=== PATIENT | female | born 1995 | race Caucasian/White ===

== ENCOUNTER → 2017-04-10 | Outpatient (CLI) | payer MEDICAID ==
[~2017-04-10] MED LIST: ACETAMINOPHEN-1 EAC1 PO; ALBUTEROL2.5 MG/31 INH; BACTRIM DS TAB1 EACH PO; BACTROBAN CREAM30 G1 TOP; CENTANY30 GM TOP; CIPRO500 MG PO; DIFLUCAN150 MG PO; DOXYCYCLINE 10100 M1 PO; EPTIFIBATIDE; ERYTHROMYCIN E3.5 G1 OPHTHALMIC; FLEXERIL PO; HYDROCODONE-AP1 EAC6 PO; IBUPROFEN 800800 M1 PO; KEFLEX500 M1 PO; KEFLEX500 MG PO; MACROBID 100 M100 M2 PO; MEDROLDOSEPACK PO; MUPIROCIN22 GM TOP; NAPHCON-A EYE D15 ML OPHTHALMIC; NYSTATIN15 GM TP; ONDANSETRON HCL4 M2 PO; PEPCID40 MG PO; PHENAZOPYRIDIN200 M2 PO; PHENERGAN 25 MG25 M1 PO; PREDNISONE 20 M20 M1 PO; PREDNISONE 20 M20 MG PO; PREDNISONE50 MG PO; PRILOSEC20 MG PO; PROAIR HFA8.5 GM INH; PROAIR RESPICL90 MCG IH; PROGRAF 1 MG1 MG; PYRIDIUM100 M1 PO; SULFADIAZINE500 MG PO; TACROLIMUS0.5 MG PO; TACROLIMUS1 MG PO; TRIAMCINOLONE A80 G2 TOP; ULTRAM 50MG TAB50 MG PO; URSODIOL300 MG PO; VENTOLIN HFA 1818 GM INH; ZOFRAN ODT4 MG PO; ZPAK PO; ZYRTEC 10 MG TA10 MG PO
== END ==
LOC: M.WC 02:28
DX: S31.102D Unspecified open wound of abdominal wall, epigastric region without penetration into peritoneal cavity, subsequent encounter (principal); J45.909 Unspecified asthma, uncomplicated; F32.9 Major depressive disorder, single episode, unspecified; F17.200 Nicotine dependence, unspecified, uncomplicated; W26.0XXD Contact with knife, subsequent encounter

== ENCOUNTER → 2017-05-08 | Outpatient (CLI) | payer MEDICAID | LOC: M.WC 08:00 | DX: S31.102D Unspecified open wound of abdominal wall, epigastric region without penetration into peritoneal cavity, subsequent encounter (principal); J45.909 Unspecified asthma, uncomplicated; F32.9 Major depressive disorder, single episode, unspecified; F17.200 Nicotine dependence, unspecified, uncomplicated; X58.XXXD Exposure to other specified factors, subsequent encounter ==

== ENCOUNTER 2017-06-27 22:01 | Emergency (ER) | payer MEDICAID ==
[~2017-06-27] VITALS: Ht 149.9 cm; Wt 52.2 kg
[~2017-06-27 22:01] MED LIST changes: -FLEXERIL PO; -MACROBID 100 M100 M2 PO; -ONDANSETRON HCL4 M2 PO; -PROGRAF 1 MG1 MG; -PYRIDIUM100 M1 PO; -ULTRAM 50MG TAB50 MG PO
[2017-06-27 22:18] VITALS: BP 112/82
[2017-06-27] MEDS ORDERED: KEFLEX500 M1 PO (22:56)
== END 2017-06-27 23:07 | disposition home or self-care (01) ==
LOC: M.ERS 22:01
DX: T21.12XA Burn of first degree of abdominal wall, initial encounter (principal); T31.0 Burns involving less than 10% of body surface; J45.909 Unspecified asthma, uncomplicated; N18.2 Chronic kidney disease, stage 2 (mild); F17.200 Nicotine dependence, unspecified, uncomplicated; Z88.8 Allergy status to other drugs, medicaments and biological substances; Z91.040 Latex allergy status; Z88.5 Allergy status to narcotic agent; W29.2XXA Contact with other powered household machinery, initial encounter; Y93.89 Activity, other specified; Y92.89 Other specified places as the place of occurrence of the external cause; Y99.0 Civilian activity done for income or pay

== ENCOUNTER → 2017-07-17 | Outpatient (CLI) | payer MEDICAID ==
[~2017-07-17] MED LIST changes: +FLEXERIL PO; +MACROBID 100 M100 M2 PO; +ONDANSETRON HCL4 M2 PO; +PROGRAF 1 MG1 MG; +PYRIDIUM100 M1 PO; +ULTRAM 50MG TAB50 MG PO
== END ==
LOC: M.WC 08:00
DX: T79.8XXD Other early complications of trauma, subsequent encounter (principal); S31.103D Unspecified open wound of abdominal wall, right lower quadrant without penetration into peritoneal cavity, subsequent encounter; N18.2 Chronic kidney disease, stage 2 (mild); J45.909 Unspecified asthma, uncomplicated; F32.9 Major depressive disorder, single episode, unspecified; F17.200 Nicotine dependence, unspecified, uncomplicated; X58.XXXD Exposure to other specified factors, subsequent encounter

== ENCOUNTER 2017-07-27 22:41 | Emergency (ER) | payer MEDICAID ==
[~2017-07-27] VITALS: Ht 149.9 cm; Wt 54.4 kg
[~2017-07-27 22:41] MED LIST changes: -FLEXERIL PO; -MACROBID 100 M100 M2 PO; -ONDANSETRON HCL4 M2 PO; -PROGRAF 1 MG1 MG; -PYRIDIUM100 M1 PO; -ULTRAM 50MG TAB50 MG PO
[2017-07-27 23:48] LABS: URINE BILIRUBIN NEGATIVE (Negative); URINE BLOOD NEGATIVE (Negative); URINE CLARITY CLEAR; URINE COLOR YELLOW; URINE GLUCOSE-RANDOM NEGATIVE (Negative); URINE KETONES NEGATIVE (Negative); URINE LEUKOCYTES-REFLEX NEGATIVE (Negative); URINE NITRITE-REFLEX NEGATIVE (Negative); URINE PROTEIN NEGATIVE (Negative); URINE SPECIFIC GRAVITY 1.025 (1.005-1.030); URINE UROBILINOGEN 0.2 E.U./dl (0.2-1.0)
[2017-07-27 23:50] LABS: ABSOLUTE EOSINOPHILS 0.2 thou/uL (0.0-0.7); ABSOLUTE MONOCYTES 0.6 thou/uL (0.0-1.2); ABSOLUTE NEUTROPHILS 5.2 thou/uL (1.6-8.1); BASOPHILS 0.5 %; EOSINOPHILS 2.1 %; HEMATOCRIT 44.9 % (37.0-47.0); HEMOGLOBIN 15.2 gm/dL (12.0-15.0); LYMPHOCYTES 25.1 %; MCH 31.7 pg (26.0-34.0); MCV 93.2 fL (80.0-100.0); MPV 9.8 fl. (7.2-11.1); NUCLEATED RBCS 0 /100WBC; PLATELET COUNT* 144 thou/uL (150-400); POLYS 64.3 %; RBC 4.82 mil/uL (4.20-5.00); RDW-CV 13.4 % (10.5-14.5); WBC 8.1 thou/uL (4.0-11.0)
[2017-07-27 23:57] LABS: AMP/METHAMP Negative (Negative); BARBITURATES Negative (Negative); BENZODIAZEPINES Negative (Negative); COCAINE Negative (Negative); METHADONE Negative (Negative); OPIATES Negative (Negative); PCP Negative (Negative); THC Negative (Negative)
[2017-07-28 00:19] LABS: CALCIUM 9.4 mg/dL (8.5-10.1); CREATININE 0.7 mg/dL (0.6-1.3); POTASSIUM 3.7 mmol/L (3.5-5.1)
[2017-07-28 02:44] VITALS: BP 124/79
== END 2017-07-28 02:44 | disposition home or self-care (01) ==
LOC: M.ERS 22:41
PROVIDERS: Emergency Medicine
DX: M54.5 Low back pain (principal); J45.909 Unspecified asthma, uncomplicated; N19 Unspecified kidney failure; Z88.6 Allergy status to analgesic agent; Z88.8 Allergy status to other drugs, medicaments and biological substances; Z91.040 Latex allergy status

== ENCOUNTER 2017-08-02 22:07 | Emergency (ER) | payer MEDICAID ==
[~2017-08-02] VITALS: Ht 149.9 cm; Wt 54.4 kg
[2017-08-03 00:32] VITALS: BP 127/86
== END 2017-08-03 00:34 | disposition home or self-care (01) ==
LOC: M.ERS 22:07
DX: R10.9 Unspecified abdominal pain (principal); J45.909 Unspecified asthma, uncomplicated; N18.2 Chronic kidney disease, stage 2 (mild); Z88.8 Allergy status to other drugs, medicaments and biological substances; Z88.5 Allergy status to narcotic agent; Z91.040 Latex allergy status

== ENCOUNTER 2017-08-19 06:47 | Emergency (ER) | payer MEDICAID ==
[~2017-08-19] VITALS: Ht 149.9 cm; Wt 54.4 kg
[2017-08-19 07:15] LABS: URINE BILIRUBIN NEGATIVE (Negative); URINE BLOOD NEGATIVE (Negative); URINE CLARITY CLEAR; URINE COLOR YELLOW; URINE GLUCOSE-RANDOM NEGATIVE (Negative); URINE KETONES NEGATIVE (Negative); URINE LEUKOCYTES-REFLEX NEGATIVE (Negative); URINE NITRITE-REFLEX NEGATIVE (Negative); URINE PROTEIN NEGATIVE (Negative); URINE SPECIFIC GRAVITY 1.025 (1.005-1.030); URINE UROBILINOGEN 0.2 E.U./dl (0.2-1.0)
[2017-08-19] MEDS ORDERED: ULTRAM 50MG TAB50 MG PO (08:03)
[2017-08-19] MEDS ORDERED: FLEXERIL PO (08:03)
[2017-08-19 08:07] VITALS: BP 109/66
== END 2017-08-19 08:07 | disposition home or self-care (01) ==
LOC: M.ERS 06:47
PROVIDERS: Family Medicine
DX: M54.5 Low back pain (principal); J44.9 Chronic obstructive pulmonary disease, unspecified; N19 Unspecified kidney failure; Z91.040 Latex allergy status; Z88.6 Allergy status to analgesic agent; Z88.8 Allergy status to other drugs, medicaments and biological substances; Z94.4 Liver transplant status

== ENCOUNTER 2017-09-04 22:58 | Emergency (ER) | payer MEDICAID ==
[~2017-09-04] VITALS: Ht 149.9 cm; Wt 54.4 kg
[~2017-09-04 22:58] MED LIST changes: +FLEXERIL PO; +ULTRAM 50MG TAB50 MG PO
[2017-09-05] VITALS: BP 110/68
== END 2017-09-05 00:02 | disposition home or self-care (01) ==
LOC: M.ERS 22:58
DX: J30.9 Allergic rhinitis, unspecified (principal); N18.2 Chronic kidney disease, stage 2 (mild); Z88.8 Allergy status to other drugs, medicaments and biological substances; Z88.5 Allergy status to narcotic agent; Z91.040 Latex allergy status

== ENCOUNTER 2017-09-30 21:41 | Emergency (ER) | payer MEDICAID ==
[~2017-09-30] VITALS: Ht 149.9 cm; Wt 53.1 kg
[2017-09-30] MEDS ORDERED: ZPAK PO (22:15)
[2017-09-30 22:34] VITALS: BP 114/78
== END 2017-09-30 22:35 | disposition home or self-care (01) ==
LOC: M.ERS 21:41
DX: J03.90 Acute tonsillitis, unspecified (principal); J45.909 Unspecified asthma, uncomplicated; Z91.040 Latex allergy status; Z88.6 Allergy status to analgesic agent; Z88.8 Allergy status to other drugs, medicaments and biological substances

== ENCOUNTER 2017-11-13 21:49 | Emergency (ER) | payer MEDICAID ==
[~2017-11-13] VITALS: Ht 149.9 cm; Wt 52.2 kg
[2017-11-13] MEDS ORDERED: PROGRAF 1 MG1 MG (22:06)
[2017-11-13 22:53] VITALS: BP 114/80
== END 2017-11-13 22:54 | disposition home or self-care (01) ==
LOC: M.ERS 21:49
DX: L76.21 Postprocedural hemorrhage of skin and subcutaneous tissue following a dermatologic procedure (principal); J45.909 Unspecified asthma, uncomplicated; N19 Unspecified kidney failure; Z88.5 Allergy status to narcotic agent; Z91.040 Latex allergy status; Z88.8 Allergy status to other drugs, medicaments and biological substances

== ENCOUNTER 2018-02-06 16:49 | Emergency (ER) | payer MEDICAID ==
[~2018-02-06] VITALS: Ht 149.9 cm; Wt 59.0 kg
[~2018-02-06 16:49] MED LIST changes: +PROGRAF 1 MG1 MG
[2018-02-06 17:01] LABS: URINE BILIRUBIN NEGATIVE (Negative); URINE BLOOD 3+ (Negative); URINE CLARITY CLEAR; URINE COLOR YELLOW; URINE GLUCOSE-RANDOM NEGATIVE (Negative); URINE KETONES NEGATIVE (Negative); URINE LEUKOCYTES-REFLEX 1+ (Negative); URINE NITRITE-REFLEX NEGATIVE (Negative); URINE PROTEIN 1+ (Negative); URINE SPECIFIC GRAVITY >= 1.030 (1.005-1.030); URINE UROBILINOGEN 0.2 E.U./dl (0.2-1.0)
[2018-02-06 17:08] LABS: SQUAMOUS >10 Many /LPF (0-3)
[2018-02-06 17:10] LABS: BACTERIA-REFLEX 1-9 Few /HPF (None Seen); URINE WBC-REFLEX >25 Many /HPF (0-5)
[2018-02-06 17:11] LABS: CRYSTALS None Seen /LPF (None Seen); URINE RBC 3-10 Few /HPF (0-2)
[2018-02-06 17:12] LABS: CASTS None Seen /LPF (None Seen); MUCUS None Seen strn/LPF (None Seen)
[2018-02-06] MEDS ORDERED: PYRIDIUM100 M1 PO (17:24)
[2018-02-06] MEDS ORDERED: MACROBID 100 M100 M2 PO (17:24)
[2018-02-06] MEDS ORDERED: ONDANSETRON HCL4 M2 PO (17:24)
[2018-02-06 17:30] VITALS: BP 119/79
== END 2018-02-06 17:31 | disposition home or self-care (01) ==
LOC: M.ERS 16:49
PROVIDERS: Physician Assistant
DX: N39.0 Urinary tract infection, site not specified (principal); J45.909 Unspecified asthma, uncomplicated; N19 Unspecified kidney failure; Z88.5 Allergy status to narcotic agent; Z91.040 Latex allergy status; Z88.8 Allergy status to other drugs, medicaments and biological substances

== ENCOUNTER 2018-04-02 13:34 | Emergency (ER) | payer MEDICAID ==
[~2018-04-02] VITALS: Ht 149.9 cm; Wt 54.4 kg
[~2018-04-02 13:34] MED LIST changes: +MACROBID 100 M100 M2 PO; +ONDANSETRON HCL4 M2 PO; +PYRIDIUM100 M1 PO
[2018-04-02] MEDS ORDERED: VENTOLIN HFA 1818 GM INH (13:44)
[2018-04-02 13:57] LABS: URINE BILIRUBIN NEGATIVE (Negative); URINE BLOOD NEGATIVE (Negative); URINE CLARITY CLEAR; URINE COLOR YELLOW; URINE GLUCOSE-RANDOM NEGATIVE (Negative); URINE KETONES NEGATIVE (Negative); URINE LEUKOCYTES-REFLEX 1+ (Negative); URINE NITRITE-REFLEX NEGATIVE (Negative); URINE PROTEIN NEGATIVE (Negative); URINE UROBILINOGEN 0.2 E.U./dl (0.2-1.0)
[2018-04-02 14:20] LABS: ABSOLUTE EOSINOPHILS 0.1 thou/uL (0.0-0.7); ABSOLUTE LYMPHOCYTES 1.7 thou/uL (0.8-5.3); ABSOLUTE MONOCYTES 0.7 thou/uL (0.0-1.2); ABSOLUTE NEUTROPHILS 4.3 thou/uL (1.6-8.1); BASOPHILS 0.4 %; EOSINOPHILS 1.9 %; HEMATOCRIT 44.2 % (37.0-47.0); HEMOGLOBIN 14.9 gm/dL (12.0-15.0); LYMPHOCYTES 24.6 %; MCH 30.9 pg (26.0-34.0); MCHC 33.7 g/dL (28.0-37.0); MCV 91.8 fL (80.0-100.0); MONOCYTES 10.4 %; MPV 9.3 fl. (7.2-11.1); NUCLEATED RBCS 0 /100WBC; PLATELET COUNT* 144 thou/uL (150-400); POLYS 62.7 %; RBC 4.81 mil/uL (4.20-5.00); WBC 6.9 thou/uL (4.0-11.0)
[2018-04-02 14:32] LABS: SQUAMOUS >10 Many /LPF (0-3); URINE RBC 0-2 Rare /HPF (0-2); URINE WBC-REFLEX 6-15 Few /HPF (0-5)
[2018-04-02 14:33] LABS: CASTS None Seen /LPF (None Seen); CRYSTALS None Seen /LPF (None Seen); MUCUS 0-3 Light strn/LPF (None Seen)
[2018-04-02 15:03] LABS: CALCIUM 8.9 mg/dL (8.5-10.1); CREATININE 0.8 mg/dL (0.6-1.3); POTASSIUM 3.9 mmol/L (3.5-5.1)
[2018-04-02 15:18] LABS: TOTAL BILIRUBIN 0.6 mg/dL (<0.1-1.0); TOTAL PROTEIN 8.4 g/dL (6.4-8.2)
[2018-04-02] MEDS ORDERED: MACROBID 100 M100 M1 PO (16:17)
[2018-04-02] MEDS ORDERED: PYRIDIUM200 MG PO (16:17)
[2018-04-02 16:31] VITALS: BP 109/75
== END 2018-04-02 16:32 | disposition home or self-care (01) ==
LOC: M.ERS 13:34
PROVIDERS: Nurse Practitioner Family
DX: N39.0 Urinary tract infection, site not specified (principal); J45.909 Unspecified asthma, uncomplicated; Z88.5 Allergy status to narcotic agent; Z91.040 Latex allergy status

== ENCOUNTER 2018-04-18 07:49 | Emergency (ER) | payer MEDICAID ==
[~2018-04-18] VITALS: Ht 149.9 cm; Wt 52.6 kg
[~2018-04-18 07:49] MED LIST changes: +MACROBID 100 M100 M1 PO; +PYRIDIUM200 MG PO
[2018-04-18] MEDS ORDERED: GENTAK5 ML INTRAOCULR (09:06)
[2018-04-18 09:20] VITALS: BP 118/85
--- NOTE | 2018-04-18 18:06 | EKG ---
[place] [address] ELECTROCARDIOGRAM REPORT Name: LANEY BLANCO Room: [facility]#: [id number] Admission: 04/18/18 Attend Phys: Discharge: 04/18/18 Date of : [birth year] Report #: [id number] THIS REPORT FOR: //name// [facility] ED Test Date: 2018-04-18 Test Time: 08:12:55 Pat Name: LANEY RUIZ Department: Room: Gender: F [employer]agger: [place] : 1995 Requested By: Donald Gan Order Number: [id number] MD: Jamal Ball Measurements Intervals [place] Rate: 89 P: 55 [place]: 146 QRS: 1 QRSD: 92 T: 10 QT: 342 QTc: 417 Interpretive Statements Sinus rhythm Probable left atrial enlargement RSR' in V1 or V2, right VCD or RVH Nonspecific T abnormalities, anterior leads Compared to ECG 11/18/2016 16:06:08 T-wave abnormality now present Electronically Signed On 04-18-2018 18:06:44 HE[employer] ASSISTANT by Jamal Ball [email or web address] <ELECTRONICALLY SIGNED> By: Jamal Ball MD, FACC 04/18/18 1806 1 1 Jamal Ball MD, FACC /EPI
== END 2018-04-18 09:21 | disposition home or self-care (01) ==
LOC: M.ERS 07:49
DX: H10.9 Unspecified conjunctivitis (principal); J45.909 Unspecified asthma, uncomplicated; F32.9 Major depressive disorder, single episode, unspecified; N19 Unspecified kidney failure; Z88.5 Allergy status to narcotic agent; Z91.040 Latex allergy status; Z88.8 Allergy status to other drugs, medicaments and biological substances

== ENCOUNTER 2018-06-04 07:17 | Emergency (ER) | payer MEDICAID ==
[~2018-06-04] VITALS: Ht 149.9 cm; Wt 53.1 kg
[~2018-06-04 07:17] MED LIST changes: +GENTAK5 ML INTRAOCULR
[2018-06-04] MEDS ORDERED: PREDNISONE 20 M20 M1 PO (08:18)
[2018-06-04 08:23] VITALS: BP 105/68
== END 2018-06-04 08:23 | disposition home or self-care (01) ==
LOC: M.ERS 07:17
DX: L50.9 Urticaria, unspecified (principal); F32.9 Major depressive disorder, single episode, unspecified; J45.909 Unspecified asthma, uncomplicated; N18.2 Chronic kidney disease, stage 2 (mild); Z91.040 Latex allergy status; Z88.6 Allergy status to analgesic agent; Z88.8 Allergy status to other drugs, medicaments and biological substances

== ENCOUNTER 2018-07-28 18:17 | Emergency (ER) | payer MEDICAID ==
[~2018-07-28] VITALS: Ht 149.9 cm; Wt 54.4 kg
[2018-07-28] MEDS ORDERED: VENTOLIN HFA 1818 GM INH (18:26)
[2018-07-28] MEDS ORDERED: DEPRESSION MED (18:27)
[2018-07-28 18:55] LABS: URINE BILIRUBIN NEGATIVE (Negative); URINE BLOOD TRACE (Negative); URINE CLARITY CLEAR; URINE COLOR YELLOW; URINE GLUCOSE-RANDOM NEGATIVE (Negative); URINE KETONES 1+ (Negative); URINE LEUKOCYTES-REFLEX NEGATIVE (Negative); URINE NITRITE-REFLEX NEGATIVE (Negative); URINE PROTEIN TRACE (Negative); URINE SPECIFIC GRAVITY >= 1.030 (1.005-1.030); URINE UROBILINOGEN 0.2 E.U./dl (0.2-1.0)
[2018-07-28 19:04] LABS: AMP/METHAMP Negative (Negative); BARBITURATES Negative (Negative); BENZODIAZEPINES Negative (Negative); COCAINE Negative (Negative); METHADONE Negative (Negative); OPIATES Negative (Negative); PCP Negative (Negative); THC Negative (Negative)
[2018-07-28 19:46] LABS: ABSOLUTE LYMPHOCYTES 1.4 thou/uL (0.8-5.3); ABSOLUTE MONOCYTES 0.5 thou/uL (0.0-1.2); ABSOLUTE NEUTROPHILS 2.3 thou/uL (1.6-8.1); BASOPHILS 0.6 %; EOSINOPHILS 0.9 %; HEMATOCRIT 37.2 % (37.0-47.0); HEMOGLOBIN 12.8 gm/dL (12.0-15.0); LYMPHOCYTES 33.1 %; MCH 30.9 pg (26.0-34.0); MCHC 34.4 g/dL (28.0-37.0); MCV 89.8 fL (80.0-100.0); MONOCYTES 11.1 %; MPV 8.8 fl. (7.2-11.1); NUCLEATED RBCS 0 /100WBC; PLATELET COUNT* 107 thou/uL (150-400); POLYS 54.3 %; RBC 4.14 mil/uL (4.20-5.00); RDW-CV 15.7 % (10.5-14.5); WBC 4.3 thou/uL (4.0-11.0)
[2018-07-28 20:07] LABS: ALBUMIN 3.4 g/dL (3.4-5.0); ALKALINE PHOSPHATASE 121 U/L (46-116); ANION GAP 8 mmol/L (7-16); BUN 15 mg/dL (7-18); CALCIUM 8.4 mg/dL (8.5-10.1); CHLORIDE 106 mmol/L (98-107); CO2 26 mmol/L (21-32); CREATININE 0.7 mg/dL (0.6-1.3); GLUCOSE 121 mg/dL (70-99); NT-PRO BRAIN NAT PEPTIDE 97 pg/mL (<300); POTASSIUM 3.3 mmol/L (3.5-5.1); SGOT 35 U/L (15-37); SGPT 37 U/L (30-65); SODIUM 140 mmol/L (136-145); TOTAL BILIRUBIN 1.1 mg/dL (<0.1-1.0); TOTAL PROTEIN 7.1 g/dL (6.4-8.2); TROPONIN-I LEVEL <0.06 ng/mL (<0.06)
[2018-07-28] MEDS ORDERED: K-DUR10 MEQ PO (20:31)
[2018-07-28 20:50] VITALS: BP 106/74
== END 2018-07-28 20:50 | disposition home or self-care (01) ==
LOC: M.ERS 18:17
PROVIDERS: Physician Assistant
DX: E86.0 Dehydration (principal); E87.6 Hypokalemia; R42 Dizziness and giddiness; R31.29 Other microscopic hematuria; F41.9 Anxiety disorder, unspecified; F32.9 Major depressive disorder, single episode, unspecified; J45.909 Unspecified asthma, uncomplicated; N18.2 Chronic kidney disease, stage 2 (mild); F17.210 Nicotine dependence, cigarettes, uncomplicated; Z88.6 Allergy status to analgesic agent; Z88.5 Allergy status to narcotic agent; Z91.040 Latex allergy status; Z88.8 Allergy status to other drugs, medicaments and biological substances; Z94.4 Liver transplant status; Z79.899 Other long term (current) drug therapy

== ENCOUNTER 2018-08-09 08:32 | Emergency (ER) | payer MEDICAID ==
[~2018-08-09] VITALS: Ht 149.9 cm; Wt 52.2 kg
[~2018-08-09 08:32] MED LIST changes: +DEPRESSION MED; +K-DUR10 MEQ PO
[2018-08-09] MEDS ORDERED: LEXAPRO 10 MG T10 M1 PO (08:43)
[2018-08-09 09:42] LABS: ABSOLUTE EOSINOPHILS 0.1 thou/uL (0.0-0.7); ABSOLUTE LYMPHOCYTES 1.1 thou/uL (0.8-5.3); ABSOLUTE MONOCYTES 0.4 thou/uL (0.0-1.2); ABSOLUTE NEUTROPHILS 2.1 thou/uL (1.6-8.1); BASOPHILS 0.3 %; EOSINOPHILS 3.9 %; HEMATOCRIT 38.3 % (37.0-47.0); HEMOGLOBIN 13.2 gm/dL (12.0-15.0); LYMPHOCYTES 29.9 %; MCH 31.4 pg (26.0-34.0); MCHC 34.6 g/dL (28.0-37.0); MCV 90.8 fL (80.0-100.0); MONOCYTES 11.5 %; MPV 8.8 fl. (7.2-11.1); NUCLEATED RBCS 0 /100WBC; PLATELET COUNT* 106 thou/uL (150-400); POLYS 54.4 %; RBC 4.22 mil/uL (4.20-5.00); RDW-CV 17.1 % (10.5-14.5); WBC 3.8 thou/uL (4.0-11.0)
[2018-08-09 09:50] LABS: ALBUMIN 3.4 g/dL (3.4-5.0); CALCIUM 8.8 mg/dL (8.5-10.1); CREATININE 0.6 mg/dL (0.6-1.3); POTASSIUM 3.4 mmol/L (3.5-5.1); TOTAL BILIRUBIN 1.2 mg/dL (<0.1-1.0); TOTAL PROTEIN 7.2 g/dL (6.4-8.2)
[2018-08-09 09:53] LABS: URINE BILIRUBIN NEGATIVE (Negative); URINE BLOOD NEGATIVE (Negative); URINE CLARITY CLEAR; URINE COLOR YELLOW; URINE GLUCOSE-RANDOM NEGATIVE (Negative); URINE KETONES NEGATIVE (Negative); URINE LEUKOCYTES-REFLEX NEGATIVE (Negative); URINE NITRITE-REFLEX NEGATIVE (Negative); URINE PROTEIN NEGATIVE (Negative)
[2018-08-09] MEDS ORDERED: CODEINE-GUAIFE120 ML PO (10:45)
[2018-08-09 11:01] VITALS: BP 107/69
== END 2018-08-09 11:01 | disposition home or self-care (01) ==
LOC: M.ERS 08:32
PROVIDERS: Personal Emergency Response Attendant
DX: B34.9 Viral infection, unspecified (principal); J45.909 Unspecified asthma, uncomplicated; F32.9 Major depressive disorder, single episode, unspecified; F41.9 Anxiety disorder, unspecified; N18.2 Chronic kidney disease, stage 2 (mild); Z88.4 Allergy status to anesthetic agent; Z88.5 Allergy status to narcotic agent; Z91.040 Latex allergy status

== ENCOUNTER 2018-08-16 21:09 | Emergency (ER) | payer MEDICAID ==
[~2018-08-16] VITALS: Ht 149.9 cm; Wt 52.2 kg
[~2018-08-16 21:09] MED LIST changes: +CODEINE-GUAIFE120 ML PO; +LEXAPRO 10 MG T10 M1 PO
[2018-08-16] MEDS ORDERED: ZPAK PO (21:59)
[2018-08-16] MEDS ORDERED: PREDNISONE 10 M10 M1 PO (21:59)
[2018-08-16] MEDS ORDERED: BENZONATATE200 MG PO (21:59)
[2018-08-16 22:29] VITALS: BP 117/72
== END 2018-08-16 22:32 | disposition home or self-care (01) ==
LOC: M.ERS 21:09
DX: J45.909 Unspecified asthma, uncomplicated (principal); F32.9 Major depressive disorder, single episode, unspecified; F41.9 Anxiety disorder, unspecified; N18.2 Chronic kidney disease, stage 2 (mild); Z88.4 Allergy status to anesthetic agent; Z88.8 Allergy status to other drugs, medicaments and biological substances; Z88.5 Allergy status to narcotic agent; Z91.040 Latex allergy status

== ENCOUNTER 2018-10-09 19:58 | Emergency (ER) | payer OTHER, MEDICAID ==
[~2018-10-09] VITALS: Ht 149.9 cm; Wt 53.1 kg
[~2018-10-09 19:58] MED LIST changes: +BENZONATATE200 MG PO; +PREDNISONE 10 M10 M1 PO
[2018-10-09 21:38] VITALS: BP 122/62
== END 2018-10-09 21:38 | disposition home or self-care (01) ==
LOC: M.ERS 19:58
DX: S16.1XXA Strain of muscle, fascia and tendon at neck level, initial encounter (principal); S09.8XXA Other specified injuries of head, initial encounter; F41.9 Anxiety disorder, unspecified; F32.9 Major depressive disorder, single episode, unspecified; J45.909 Unspecified asthma, uncomplicated; N18.2 Chronic kidney disease, stage 2 (mild); Z88.8 Allergy status to other drugs, medicaments and biological substances; Z94.4 Liver transplant status; Z88.6 Allergy status to analgesic agent; Z91.040 Latex allergy status; Z88.5 Allergy status to narcotic agent; V89.2XXA Person injured in unspecified motor-vehicle accident, traffic, initial encounter; Y93.89 Activity, other specified; Y92.89 Other specified places as the place of occurrence of the external cause; Y99.8 Other external cause status

== ENCOUNTER 2018-12-23 14:47 | Emergency (ER) | payer MEDICAID ==
[~2018-12-23] VITALS: Ht 149.9 cm; Wt 46.3 kg
[2018-12-23 15:16] LABS: URINE BLOOD NEGATIVE (Negative); URINE CLARITY CLEAR; URINE COLOR YELLOW; URINE GLUCOSE-RANDOM NEGATIVE (Negative); URINE KETONES NEGATIVE (Negative); URINE LEUKOCYTES-REFLEX NEGATIVE (Negative); URINE NITRITE-REFLEX NEGATIVE (Negative); URINE PROTEIN 1+ (Negative); URINE SPECIFIC GRAVITY >= 1.030 (1.005-1.030); URINE UROBILINOGEN 0.2 E.U./dl (0.2-1.0)
[2018-12-23 15:18] LABS: ICTOTEST (BILI CONFIRMATORY) Negative (Negative); URINE BILIRUBIN 2+ (Negative)
[2018-12-23 15:50] LABS: ABSOLUTE EOSINOPHILS 0.1 thou/uL (0.0-0.7); ABSOLUTE LYMPHOCYTES 0.4 thou/uL (0.8-5.3); ABSOLUTE MONOCYTES 0.5 thou/uL (0.0-1.2); ABSOLUTE NEUTROPHILS 3.5 thou/uL (1.6-8.1); BASOPHILS 0.3 %; EOSINOPHILS 2.3 %; HEMATOCRIT 43.6 % (37.0-47.0); HEMOGLOBIN 14.9 gm/dL (12.0-15.0); LYMPHOCYTES 9.2 %; MCH 31.8 pg (26.0-34.0); MCHC 34.2 g/dL (28.0-37.0); MCV 92.9 fL (80.0-100.0); MONOCYTES 11.7 %; MPV 8.9 fl. (7.2-11.1); NUCLEATED RBCS 0 /100WBC; PLATELET COUNT* 105 thou/uL (150-400); POLYS 76.5 %; RDW-CV 15.5 % (10.5-14.5); WBC 4.6 thou/uL (4.0-11.0)
[2018-12-23 15:51] LABS: AMP/METHAMP Negative (Negative); BARBITURATES Negative (Negative); BENZODIAZEPINES Negative (Negative); COCAINE Negative (Negative); METHADONE Negative (Negative); OPIATES Negative (Negative); PCP Negative (Negative); THC Negative (Negative)
[2018-12-23 15:56] LABS: CALCIUM 8.7 mg/dL (8.5-10.1); CREATININE 0.9 mg/dL (0.6-1.3); POTASSIUM 3.1 mmol/L (3.5-5.1)
[2018-12-23 16:01] LABS: TOTAL BILIRUBIN 1.3 mg/dL (<0.1-1.0); TOTAL PROTEIN 8.1 g/dL (6.4-8.2)
[2018-12-23] MEDS ORDERED: ONDANSETRON HCL4 M2 PO (17:34)
[2018-12-23 17:43] VITALS: BP 130/68
== END 2018-12-23 17:45 | disposition home or self-care (01) ==
LOC: M.ERS 14:47
PROVIDERS: Nurse Practitioner Family
DX: K52.9 Noninfective gastroenteritis and colitis, unspecified (principal); K56.7 Ileus, unspecified; J45.909 Unspecified asthma, uncomplicated; F32.9 Major depressive disorder, single episode, unspecified; F41.9 Anxiety disorder, unspecified; N18.2 Chronic kidney disease, stage 2 (mild); Z88.4 Allergy status to anesthetic agent; Z88.6 Allergy status to analgesic agent; Z91.040 Latex allergy status; Z88.5 Allergy status to narcotic agent

== ENCOUNTER → 2019-01-07 | Outpatient (CLI) | payer MEDICAID | LOC: M.WC 10:00 | DX: T79.8XXD Other early complications of trauma, subsequent encounter (principal); S31.109D Unspecified open wound of abdominal wall, unspecified quadrant without penetration into peritoneal cavity, subsequent encounter; J45.909 Unspecified asthma, uncomplicated; F17.200 Nicotine dependence, unspecified, uncomplicated; F32.9 Major depressive disorder, single episode, unspecified; F41.9 Anxiety disorder, unspecified; Z94.4 Liver transplant status; Z94.89 Other transplanted organ and tissue status; X58.XXXD Exposure to other specified factors, subsequent encounter; Y35 Legal intervention ==

== ENCOUNTER → 2019-01-14 | Outpatient (CLI) | payer MEDICAID | LOC: M.WC 02:00 | DX: S31.109D Unspecified open wound of abdominal wall, unspecified quadrant without penetration into peritoneal cavity, subsequent encounter (principal); J45.909 Unspecified asthma, uncomplicated; F17.200 Nicotine dependence, unspecified, uncomplicated; F32.9 Major depressive disorder, single episode, unspecified; Z94.4 Liver transplant status; Z98.49 Cataract extraction status, unspecified eye; X58.XXXD Exposure to other specified factors, subsequent encounter ==

== ENCOUNTER → 2019-01-17 | Outpatient (CLI) | payer MEDICAID | LOC: M.WC 14:06 | DX: S31.109D Unspecified open wound of abdominal wall, unspecified quadrant without penetration into peritoneal cavity, subsequent encounter (principal); J45.909 Unspecified asthma, uncomplicated; F32.9 Major depressive disorder, single episode, unspecified; F17.200 Nicotine dependence, unspecified, uncomplicated; X58.XXXD Exposure to other specified factors, subsequent encounter ==

== ENCOUNTER → 2019-01-31 | Outpatient (CLI) | payer MEDICAID ==
[~2019-01-31] MED LIST changes: +AUGMENTIN 875-1 EACH PO; +NORCO 5-325 TA1 EAC1 PO; +ZOFRAN ODT4 MG DISSOLVE
== END ==
LOC: M.WC 09:30
DX: T79.9XXD Unspecified early complication of trauma, subsequent encounter (principal); J45.909 Unspecified asthma, uncomplicated; F17.200 Nicotine dependence, unspecified, uncomplicated; F32.9 Major depressive disorder, single episode, unspecified; F41.9 Anxiety disorder, unspecified; Z94.4 Liver transplant status; Z94.89 Other transplanted organ and tissue status; X58.XXXD Exposure to other specified factors, subsequent encounter

== ENCOUNTER 2019-02-22 06:40 | Emergency (ER) | payer MEDICAID ==
[~2019-02-22] VITALS: Ht 149.9 cm; Wt 45.8 kg
[~2019-02-22 06:40] MED LIST changes: -AUGMENTIN 875-1 EACH PO; -NORCO 5-325 TA1 EAC1 PO; -ZOFRAN ODT4 MG DISSOLVE
[2019-02-22 07:10] LABS: ABSOLUTE EOSINOPHILS 0.1 thou/uL (0.0-0.7); ABSOLUTE LYMPHOCYTES 1.4 thou/uL (0.8-5.3); ABSOLUTE MONOCYTES 0.5 thou/uL (0.0-1.2); ABSOLUTE NEUTROPHILS 2.9 thou/uL (1.6-8.1); BASOPHILS 0.3 %; EOSINOPHILS 1.8 %; HEMATOCRIT 41.4 % (37.0-47.0); HEMOGLOBIN 14.3 gm/dL (12.0-15.0); LYMPHOCYTES 28.6 %; MCH 32.4 pg (26.0-34.0); MCHC 34.5 g/dL (28.0-37.0); MCV 93.7 fL (80.0-100.0); MONOCYTES 10.3 %; MPV 9.2 fl. (7.2-11.1); NUCLEATED RBCS 0 /100WBC; PLATELET COUNT* 103 thou/uL (150-400); RBC 4.41 mil/uL (4.20-5.00); RDW-CV 13.4 % (10.5-14.5)
[2019-02-22 07:13] LABS: URINE BILIRUBIN NEGATIVE (Negative); URINE BLOOD NEGATIVE (Negative); URINE CLARITY CLEAR; URINE COLOR YELLOW; URINE GLUCOSE-RANDOM NEGATIVE (Negative); URINE KETONES TRACE (Negative); URINE LEUKOCYTES-REFLEX NEGATIVE (Negative); URINE NITRITE-REFLEX NEGATIVE (Negative); URINE PROTEIN TRACE (Negative); URINE SPECIFIC GRAVITY 1.025 (1.005-1.030); URINE UROBILINOGEN 0.2 E.U./dl (0.2-1.0)
[2019-02-22 07:15] LABS: CALCIUM 8.9 mg/dL (8.5-10.1); CREATININE 0.8 mg/dL (0.6-1.3); POTASSIUM 3.1 mmol/L (3.5-5.1)
[2019-02-22 07:20] LABS: TOTAL BILIRUBIN 0.4 mg/dL (<0.1-1.0); TOTAL PROTEIN 7.9 g/dL (6.4-8.2)
[2019-02-22] MEDS ORDERED: NORCO 5-325 TA1 EAC1 PO (09:14)
[2019-02-22] MEDS ORDERED: ZOFRAN ODT4 MG DISSOLVE (09:14)
[2019-02-22] MEDS ORDERED: AUGMENTIN 875-1 EACH PO (09:14)
[2019-02-22 09:33] VITALS: BP 111/62
== END 2019-02-22 09:33 | disposition home or self-care (01) ==
LOC: M.ERS 06:40
PROVIDERS: Emergency Medicine Emergency Medical Services
DX: R19.7 Diarrhea, unspecified (principal); R10.32 Left lower quadrant pain; F32.9 Major depressive disorder, single episode, unspecified; F41.9 Anxiety disorder, unspecified; J45.909 Unspecified asthma, uncomplicated; Z88.6 Allergy status to analgesic agent; Z91.040 Latex allergy status; Z88.8 Allergy status to other drugs, medicaments and biological substances

== ENCOUNTER → 2019-03-19 | Outpatient (CLI) | payer MEDICAID ==
[~2019-03-19] MED LIST changes: +AUGMENTIN 875-1 EACH PO; +NORCO 5-325 TA1 EAC1 PO; +ZOFRAN ODT4 MG DISSOLVE
== END ==
LOC: M.WC 10:00
DX: T81.89XD Other complications of procedures, not elsewhere classified, subsequent encounter (principal); S31.109D Unspecified open wound of abdominal wall, unspecified quadrant without penetration into peritoneal cavity, subsequent encounter; J45.909 Unspecified asthma, uncomplicated; F17.200 Nicotine dependence, unspecified, uncomplicated; F32.9 Major depressive disorder, single episode, unspecified; F41.9 Anxiety disorder, unspecified; Z94.4 Liver transplant status; Z94.89 Other transplanted organ and tissue status; X78.1XXD Intentional self-harm by knife, subsequent encounter; Y83.8 Other surgical procedures as the cause of abnormal reaction of the patient, or of later complication, without mention of misadventure at the time of the procedure

== ENCOUNTER → 2019-04-02 | Outpatient (CLI) | payer MEDICAID | LOC: M.WC 04:44 | DX: T81.89XD Other complications of procedures, not elsewhere classified, subsequent encounter (principal); S31.109D Unspecified open wound of abdominal wall, unspecified quadrant without penetration into peritoneal cavity, subsequent encounter; J45.909 Unspecified asthma, uncomplicated; F41.9 Anxiety disorder, unspecified; F32.9 Major depressive disorder, single episode, unspecified; F17.200 Nicotine dependence, unspecified, uncomplicated; Z94.4 Liver transplant status; Z94.89 Other transplanted organ and tissue status; Y83.8 Other surgical procedures as the cause of abnormal reaction of the patient, or of later complication, without mention of misadventure at the time of the procedure; Y28 Contact with sharp object, undetermined intent ==

== ENCOUNTER → 2019-04-09 | Outpatient (CLI) | payer MEDICAID | LOC: M.WC 05:00 | DX: T81.89XD Other complications of procedures, not elsewhere classified, subsequent encounter (principal); S31.109D Unspecified open wound of abdominal wall, unspecified quadrant without penetration into peritoneal cavity, subsequent encounter; J45.909 Unspecified asthma, uncomplicated; F17.200 Nicotine dependence, unspecified, uncomplicated; F32.9 Major depressive disorder, single episode, unspecified; F41.9 Anxiety disorder, unspecified; Z94.4 Liver transplant status; Z94.89 Other transplanted organ and tissue status; X78.1XXD Intentional self-harm by knife, subsequent encounter; Y83.8 Other surgical procedures as the cause of abnormal reaction of the patient, or of later complication, without mention of misadventure at the time of the procedure ==

== ENCOUNTER 2019-04-30 18:09 | Emergency (ER) | payer OTHER ==
[~2019-04-30] VITALS: Ht 149.9 cm; Wt 45.8 kg
[2019-04-30 20:32] LABS: ABSOLUTE EOSINOPHILS 0.1 thou/uL (0.0-0.7); ABSOLUTE LYMPHOCYTES 1.7 thou/uL (0.8-5.3); ABSOLUTE MONOCYTES 0.5 thou/uL (0.0-1.2); ABSOLUTE NEUTROPHILS 3.6 thou/uL (1.6-8.1); BASOPHILS 0.3 %; EOSINOPHILS 2.2 %; HEMATOCRIT 39.6 % (37.0-47.0); HEMOGLOBIN 13.6 gm/dL (12.0-15.0); MCH 32.2 pg (26.0-34.0); MCHC 34.5 g/dL (28.0-37.0); MCV 93.4 fL (80.0-100.0); MONOCYTES 8.5 %; MPV 8.6 fl. (7.2-11.1); NUCLEATED RBCS 0 /100WBC; PLATELET COUNT* 116 thou/uL (150-400); RBC 4.24 mil/uL (4.20-5.00); RDW-CV 13.3 % (10.5-14.5); WBC 5.9 thou/uL (4.0-11.0)
[2019-04-30 20:38] LABS: CALCIUM 8.8 mg/dL (8.5-10.1); CREATININE 0.7 mg/dL (0.6-1.3); POTASSIUM 3.3 mmol/L (3.5-5.1)
[2019-04-30 20:39] LABS: INR 1.1; PROTIME 11.3 Seconds (9.20-11.50)
[2019-04-30 20:43] LABS: ALBUMIN 3.8 g/dL (3.4-5.0); TOTAL BILIRUBIN 0.4 mg/dL (<0.1-1.0); TOTAL PROTEIN 7.8 g/dL (6.4-8.2)
[2019-04-30 23:12] VITALS: BP 117/82
== END 2019-04-30 23:12 | disposition home or self-care (01) ==
LOC: M.ERS 18:09
PROVIDERS: Family Medicine
DX: K64.9 Unspecified hemorrhoids (principal); F41.9 Anxiety disorder, unspecified; F32.9 Major depressive disorder, single episode, unspecified; J45.909 Unspecified asthma, uncomplicated; N18.2 Chronic kidney disease, stage 2 (mild); Z94.4 Liver transplant status; Z88.6 Allergy status to analgesic agent; Z91.040 Latex allergy status

== ENCOUNTER 2019-05-23 19:44 | Emergency (ER) | payer OTHER ==
[~2019-05-23] VITALS: Ht 149.9 cm; Wt 46.7 kg
[2019-05-23 20:53] VITALS: BP 115/68
== END 2019-05-23 20:54 | disposition home or self-care (01) ==
LOC: M.ERS 19:44
DX: J02.9 Acute pharyngitis, unspecified (principal); S31.109D Unspecified open wound of abdominal wall, unspecified quadrant without penetration into peritoneal cavity, subsequent encounter; J45.909 Unspecified asthma, uncomplicated; F41.9 Anxiety disorder, unspecified; N18.2 Chronic kidney disease, stage 2 (mild); F32.9 Major depressive disorder, single episode, unspecified; Z88.6 Allergy status to analgesic agent; Z91.040 Latex allergy status; Z88.5 Allergy status to narcotic agent; X58.XXXD Exposure to other specified factors, subsequent encounter

== ENCOUNTER 2019-11-07 19:12 | Emergency (ER) | payer OTHER ==
[~2019-11-07] VITALS: Ht 149.9 cm; Wt 45.4 kg
[2019-11-07] MEDS ORDERED: ASTAGRAF XL0.5 MG (20:38)
[2019-11-07 20:50] LABS: URINE BILIRUBIN NEGATIVE (Negative); URINE BLOOD NEGATIVE (Negative); URINE CLARITY CLEAR; URINE COLOR YELLOW; URINE GLUCOSE-RANDOM NEGATIVE (Negative); URINE KETONES NEGATIVE (Negative); URINE LEUKOCYTES-REFLEX NEGATIVE (Negative); URINE PROTEIN NEGATIVE (Negative); URINE SPECIFIC GRAVITY >= 1.030 (1.005-1.030); URINE UROBILINOGEN 0.2 E.U./dl (0.2-1.0)
[2019-11-07 20:51] LABS: URINE NITRITE-REFLEX POSITIVE (Negative)
[2019-11-07 21:10] LABS: BACTERIA-REFLEX >30 Many /HPF (None Seen); CASTS None Seen /LPF (None Seen); CRYSTALS None Seen /LPF (None Seen); SQUAMOUS 0-3 Few /LPF (0-3); URINE RBC 0-2 Rare /HPF (0-2); URINE WBC-REFLEX 6-15 Few /HPF (0-5)
[2019-11-07] MEDS ORDERED: FLAGYL500 M1 PO (21:30)
[2019-11-07] MEDS ORDERED: BACTRIM DS TAB1 EAC1 PO (21:30)
[2019-11-07 21:51] VITALS: BP 119/75
== END 2019-11-07 21:52 | disposition home or self-care (01) ==
LOC: M.ERS 19:12
PROVIDERS: Emergency Medicine Emergency Medical Services
DX: N39.0 Urinary tract infection, site not specified (principal); N76.0 Acute vaginitis; J45.909 Unspecified asthma, uncomplicated; F32.9 Major depressive disorder, single episode, unspecified; F41.9 Anxiety disorder, unspecified; F17.210 Nicotine dependence, cigarettes, uncomplicated; Z91.040 Latex allergy status; Z88.6 Allergy status to analgesic agent; Z88.8 Allergy status to other drugs, medicaments and biological substances

== ENCOUNTER 2019-12-11 10:20 | Emergency (ER) | payer OTHER ==
[~2019-12-11] VITALS: Ht 149.9 cm; Wt 48.1 kg
[~2019-12-11 10:20] MED LIST changes: +ASTAGRAF XL0.5 MG; +BACTRIM DS TAB1 EAC1 PO; +FLAGYL500 M1 PO
[2019-12-11] MEDS ORDERED: AMOXICILLI400 MG/5 M PO (11:25)
[2019-12-11] MEDS ORDERED: Magic Mouthwash SWISH&SPIT (11:25)
[2019-12-11 11:34] VITALS: BP 123/70
== END 2019-12-11 11:34 | disposition home or self-care (01) ==
LOC: M.ERS 10:20
DX: S30.0XXA Contusion of lower back and pelvis, initial encounter (principal); J02.0 Streptococcal pharyngitis; J45.909 Unspecified asthma, uncomplicated; F17.210 Nicotine dependence, cigarettes, uncomplicated; Z88.6 Allergy status to analgesic agent; Z91.040 Latex allergy status; Z88.8 Allergy status to other drugs, medicaments and biological substances; W57.XXXA Bitten or stung by nonvenomous insect and other nonvenomous arthropods, initial encounter; Y93.89 Activity, other specified; Y92.89 Other specified places as the place of occurrence of the external cause; Y99.8 Other external cause status

== ENCOUNTER 2020-02-22 14:10 | Emergency (ER) | payer OTHER ==
[~2020-02-22] VITALS: Ht 149.9 cm; Wt 47.6 kg
[~2020-02-22 14:10] MED LIST changes: +AMOXICILLI400 MG/5 M PO; +Magic Mouthwash SWISH&SPIT
[2020-02-22] MEDS ORDERED: AMOXICILLIN 50500 MG PO (15:36)
[2020-02-22 15:37] LABS: INFLUENZA A ANTIGEN Negative (Negative); INFLUENZA B ANTIGEN Negative (Negative)
[2020-02-22 16:10] VITALS: BP 120/74
== END 2020-02-22 16:11 | disposition home or self-care (01) ==
LOC: M.ERS 14:10
PROVIDERS: Nurse Practitioner Family
DX: J02.0 Streptococcal pharyngitis (principal); Z20.828 Contact with and (suspected) exposure to other viral communicable diseases; J45.909 Unspecified asthma, uncomplicated; F32.9 Major depressive disorder, single episode, unspecified; N18.2 Chronic kidney disease, stage 2 (mild); F17.210 Nicotine dependence, cigarettes, uncomplicated; Z79.899 Other long term (current) drug therapy; Z88.8 Allergy status to other drugs, medicaments and biological substances; Z88.6 Allergy status to analgesic agent; Z91.040 Latex allergy status

== ENCOUNTER 2020-03-20 18:21 | Emergency (ER) | payer OTHER ==
[~2020-03-20] VITALS: Ht 149.9 cm; Wt 49.0 kg
[~2020-03-20 18:21] MED LIST changes: +AMOXICILLIN 50500 MG PO
[2020-03-20] MEDS ORDERED: PREDNISONE50 MG PO (19:36)
[2020-03-20 19:47] VITALS: BP 112/72
== END 2020-03-20 19:48 | disposition home or self-care (01) ==
LOC: M.ERS 18:21
DX: G56.02 Carpal tunnel syndrome, left upper limb (principal); J45.909 Unspecified asthma, uncomplicated; F17.210 Nicotine dependence, cigarettes, uncomplicated; Z79.899 Other long term (current) drug therapy; Z88.6 Allergy status to analgesic agent; Z91.040 Latex allergy status

== ENCOUNTER 2020-04-01 09:00 | Emergency (ER) | payer OTHER ==
[~2020-04-01] VITALS: Ht 180.3 cm; Wt 49.0 kg
[2020-04-01 09:52] LABS: URINE BILIRUBIN NEGATIVE (Negative); URINE BLOOD NEGATIVE (Negative); URINE CLARITY CLEAR; URINE COLOR YELLOW; URINE GLUCOSE-RANDOM NEGATIVE (Negative); URINE KETONES NEGATIVE (Negative); URINE LEUKOCYTES-REFLEX TRACE (Negative); URINE PROTEIN TRACE (Negative); URINE UROBILINOGEN 0.2 E.U./dl (0.2-1.0)
[2020-04-01 09:55] LABS: URINE NITRITE-REFLEX POSITIVE (Negative)
[2020-04-01 10:01] LABS: CASTS None Seen /LPF (None Seen); MUCUS None Seen strn/LPF (None Seen); SQUAMOUS 4-10 Moderate /LPF (0-3); URINE RBC 0-2 Rare /HPF (0-2); URINE WBC-REFLEX 0-5 Rare /HPF (0-5)
[2020-04-01 10:02] LABS: TRIPLE PHOSPHATE CRYSTALS >10 Many /LPF (None Seen)
[2020-04-01] MEDS ORDERED: KEFLEX500 M1 PO (11:09)
[2020-04-01] MEDS ORDERED: PREDNISONE50 MG PO (11:09)
[2020-04-01 11:17] VITALS: BP 109/63
== END 2020-04-01 11:18 | disposition home or self-care (01) ==
LOC: M.ERS 09:00
PROVIDERS: Emergency Medicine Emergency Medical Services
DX: N39.0 Urinary tract infection, site not specified (principal); Z20.828 Contact with and (suspected) exposure to other viral communicable diseases; R51.9 Headache, unspecified; J45.909 Unspecified asthma, uncomplicated; N18.2 Chronic kidney disease, stage 2 (mild); F17.210 Nicotine dependence, cigarettes, uncomplicated; Z79.899 Other long term (current) drug therapy; Z88.8 Allergy status to other drugs, medicaments and biological substances; Z88.6 Allergy status to analgesic agent

== ENCOUNTER 2020-08-18 18:04 | Emergency (ER) | payer OTHER ==
[~2020-08-18] VITALS: Ht 149.9 cm; Wt 50.8 kg
[2020-08-18] MEDS ORDERED: MEDROLDOSEPACK PO (19:13)
[2020-08-18] MEDS ORDERED: VENTOLIN HFA 1818 GM INH (19:13)
[2020-08-18] MEDS ORDERED: ZPAK PO (19:13)
[2020-08-18 19:29] VITALS: BP 132/65
== END 2020-08-18 19:30 | disposition home or self-care (01) ==
LOC: M.ERS 18:04
DX: J45.901 Unspecified asthma with (acute) exacerbation (principal); J06.9 Acute upper respiratory infection, unspecified; F17.210 Nicotine dependence, cigarettes, uncomplicated; Z91.040 Latex allergy status; Z88.5 Allergy status to narcotic agent; Z88.6 Allergy status to analgesic agent; Z88.8 Allergy status to other drugs, medicaments and biological substances

== ENCOUNTER 2020-09-08 12:16 | Emergency (ER) | payer OTHER, MEDICAID ==
[~2020-09-08] VITALS: Ht 149.9 cm; Wt 51.3 kg
[2020-09-08] MEDS ORDERED: PROGRAF 1 MG1 MG PO (12:48)
[2020-09-08 14:16] VITALS: BP 124/81
== END 2020-09-08 14:17 | disposition home or self-care (01) ==
LOC: M.ERS 12:16
DX: S63.501A Unspecified sprain of right wrist, initial encounter (principal); J45.909 Unspecified asthma, uncomplicated; Z88.8 Allergy status to other drugs, medicaments and biological substances; Z88.6 Allergy status to analgesic agent; Z91.040 Latex allergy status; Z79.899 Other long term (current) drug therapy; V49.59XA Passenger injured in collision with other motor vehicles in traffic accident, initial encounter; Y93.89 Activity, other specified; Y92.413 State road as the place of occurrence of the external cause; Y99.9 Unspecified external cause status

== ENCOUNTER 2021-04-20 14:12 | Emergency (ER) | payer OTHER, MEDICAID ==
[~2021-04-20] VITALS: Ht 149.9 cm; Wt 49.4 kg
[~2021-04-20 14:12] MED LIST changes: +PROGRAF 1 MG1 MG PO
[2021-04-20 15:08] VITALS: BP 130/54
== END 2021-04-20 15:09 | disposition home or self-care (01) ==
LOC: M.ERS 14:12
DX: R05.9 Cough, unspecified (principal); Z20.822 Contact with and (suspected) exposure to COVID-19; J45.909 Unspecified asthma, uncomplicated; F17.210 Nicotine dependence, cigarettes, uncomplicated; Z88.6 Allergy status to analgesic agent; Z91.040 Latex allergy status; Z88.5 Allergy status to narcotic agent